=== PATIENT | female | born 1935 | race Caucasian/White ===

== ENCOUNTER → 2016-12-10 | Outpatient (CLI) | payer OTHER | LOC: CIMAGING 10:20 | PROVIDERS: ATTEND Internal Medicine | DX: N20.0 Calculus of kidney (principal) | CPT/HCPCS: 74176-PO ==

== ENCOUNTER → 2016-12-19 | Outpatient (CLI) | payer OTHER ==
[~2016-12-19] MED LIST: IOPAMIDOL (ISOVUE-300) 100 ML BTL IV ONE
[2016-12-19 09:04] LABS: CREATININE 0.9 mg/dL (0.6-1.0); GLOMERULAR FILTRATION RATE > 60
== END ==
LOC: FIMAGING 08:19
PROVIDERS: ATTEND Specialist
DX: N28.1 Cyst of kidney, acquired (principal); N20.0 Calculus of kidney
CPT/HCPCS: 74177; Q9967

== ENCOUNTER → 2017-01-08 | Outpatient (CLI) | payer OTHER | LOC: FIMAGING 08:47 | PROVIDERS: ATTEND Internal Medicine | DX: R92.8 Other abnormal and inconclusive findings on diagnostic imaging of breast (principal) ==

== ENCOUNTER 2017-01-23 09:40 | Day surgery (SDC) | payer OTHER ==
[2017-01-23] MEDS ORDERED: NS 1,000 ML IV SCH (10:00)
[2017-01-23] MEDS ORDERED: PROPOFOL/EMULSION 500 MG/50 ML BOTTLE IV ONE (11:46)
[2017-01-23] MEDS ORDERED: LIDOCAINE 2% 100 MG/5 ML SYR ONE (11:46)
[2017-01-23] MEDS ORDERED: fentaNYL 100 MCG/2 ML INJ ONE (11:46)
[2017-01-23] MEDS ORDERED: ONDANSETRON 4 MG/2 ML VIAL ONE (11:47)
[2017-01-23] MEDS ORDERED: DEXAMETHASONE 4 MG/ML VIAL ONE (11:47)
[2017-01-23] MEDS ORDERED: REMIFENTANIL HCL 1 MG VIAL ONE (11:48)
[2017-01-23] MEDS ORDERED: LIDOCAINE HCL 160 MG/4 ML LTA KIT TP ONE (11:51)
[2017-01-23] MEDS ORDERED: PHENYLEPHRINE HCL 100 MCG/ML SYR ONE (11:56)
[2017-01-23] MEDS ORDERED: epHEDrine SULFATE 10 MG/ML SYR ONE ×2 (11:57→12:31)
[2017-01-23] MEDS ORDERED: IOPAMIDOL (ISOVUE-300) 100 ML BTL IV ONE (12:43)
== END 2017-01-23 15:00 | disposition home or self-care (01) ==
LOC: FIMAGING 09:40
PROVIDERS: ATTEND Specialist
PROC: 0T9430Z Drainage of Left Kidney Pelvis with Drainage Device, Percutaneous Approach (ICD-10-PCS; principal; 2017-01-23 11:00)
DX: N20.0 Calculus of kidney (principal); N23 Unspecified renal colic; R82.99 Other abnormal findings in urine; R31.0 Gross hematuria; I10 Essential (primary) hypertension; E78.5 Hyperlipidemia, unspecified; E03.9 Hypothyroidism, unspecified; Z96.642 Presence of left artificial hip joint; Z79.01 Long term (current) use of anticoagulants
CPT/HCPCS: 50432; C1729; C1769; J0696; J1100; J1644; J2001; J2370; J2405; J2704; J3010; Q9967

== ENCOUNTER 2017-01-24 09:48 | Observation (INO) | payer OTHER ==
[~2017-01-24 09:48] MED LIST changes: -IOPAMIDOL (ISOVUE-300) 100 ML BTL IV ONE; +MIDAZOLAM 2 MG/2 ML VIAL ONE; +levOFLOXACIN 500 MG/DEXTROSE 100 ML IV ONE
[2017-01-24] MEDS ORDERED: MINERAL OIL 10 ML VIAL TP ONE (10:05)
[2017-01-24] MEDS ORDERED: levOFLOXACIN 500 MG/DEXTROSE/100 ML BAG IV ONE (10:15)
[2017-01-24] MEDS ORDERED: LIDOCAINE 1% 5 ML SDV ONE (10:16)
[2017-01-24] MEDS ORDERED: LIDOCAINE 2% 5 ML SDV ONE ×2 (10:16→10:55)
[2017-01-24] MEDS ORDERED: LR 1,000 ML IV ONE (10:39)
[2017-01-24] MEDS ORDERED: LIDOCAINE 1% 5 ML SDV ID PRN (10:39)
[2017-01-24] MEDS ORDERED: MIDAZOLAM 2 MG/2 ML VIAL ONE (10:49)
[2017-01-24] MEDS ORDERED: DEXAMETHASONE 4 MG/ML VIAL ONE (10:55)
[2017-01-24] MEDS ORDERED: PHENYLEPHRINE HCL 100 MCG/ML SYR ONE (10:55)
[2017-01-24] MEDS ORDERED: PROPOFOL 200 MG/20 ML VIAL ONE (10:55)
[2017-01-24] MEDS ORDERED: fentaNYL 100 MCG/2 ML INJ ONE (10:55)
[2017-01-24] MEDS ORDERED: morphINE *ANESTHESIA ONLY* 10 MG/ML VIAL ONE (11:10)
[2017-01-24] MEDS ORDERED: ONDANSETRON 4 MG/2 ML VIAL ONE ×2 (13:49)
[2017-01-24] MEDS ORDERED: IOPAMIDOL (ISOVUE-300) 100 ML BTL IV ONE (14:20)
--- NOTE | 2017-01-24 14:24 | POSTOPPROG ---
Post Op Note Date of Operation: 01/25/17 Surgeon: Charly Cota (# [id number]) Anesthesia: GET(General Endotracheal) Pre-op Diagnosis: Large left renal calculus (partial staghorn) Post-op Diagnosis: Large left renal calculus (partial staghorn) Procedure: Left PCN > 2 cm w/ fluoroscopic guidance Findings: See op note Inf/Abcess present in the surg proc area at time of surgery?: No EBL: 50-100 (75 cc) Complications: None Drains: Nephrostomy (14 Fr. left) Specimen(s): Left renal calculus fragments
[2017-01-24] MEDS ORDERED: ONDANSETRON 4 MG/2 ML VIAL IVP PRN (14:33)
[2017-01-24] MEDS ORDERED: HYDROmorphONE/DILAUDID 1 MG/ML SYR IVP PRN (14:34)
[2017-01-24] MEDS ORDERED: FLUTICASONE HFA 110 MCG MDI IH PRN (14:35)
[2017-01-24] MEDS ORDERED: SALMETEROL DISKUS MDI IH PRN (14:35)
[2017-01-24] MEDS ORDERED: D5W 1/2 NS 1,000 ML IV SCH (14:45)
[2017-01-24 14:58] LABS: HEMATOCRIT 36.5 % (38.0-47.0); HEMOGLOBIN 11.7 g/dL (12.6-16.3); MEAN CELL HEMOGLOBIN 30.2 pg (27.9-34.1); MEAN CELL HEMOGLOBIN CONCENTR. 32.1 g/dL (32.4-36.7); MEAN CELL VOLUME 94.3 fL (81.5-99.8); RED BLOOD CELL COUNT 3.87 10^6/uL (4.18-5.33); RED CELL DISTRIBUTION WIDTH 15.5 % (11.5-15.2)
[2017-01-24 15:19] LABS: ANION GAP 7 mEq/L (8-16); CALCIUM 8.6 mg/dL (8.5-10.4); CARBON DIOXIDE 24 mEq/l (22-31); CHLORIDE 107 mEq/L (97-110); CREATININE 0.7 mg/dL (0.6-1.0); GLOMERULAR FILTRATION RATE > 60; GLUCOSE 129 mg/dL (70-100); POTASSIUM 4.1 mEq/L (3.5-5.2); SODIUM 138 mEq/L (134-144)
[2017-01-24] MEDS ORDERED: PANTOPRAZOLE SODIUM 40 MG TAB PO PRN (15:26)
[2017-01-24] MEDS: HYDROCODONE/APAP 10/325 TAB PO PRN (20:32)
[2017-01-24] MEDS: diphenhydrAMINE 25 MG CAP PO PRN (21:04)
--- NOTE | 2017-01-24 21:16 | GOP ---
[f rep st] MTDD
[2017-01-25] MEDS: HYDROCODONE/APAP 10/325 TAB PO PRN ×5 (02:32→15:45)
[2017-01-25] MEDS: LEVOTHYROXINE 75 MCG TAB PO SCH (05:33)
[2017-01-25] MEDS: ROSUVASTATIN CALCIUM 10 MG TAB PO SCH (08:33)
[2017-01-25] MEDS: IRBESARTAN 150 MG TAB PO SCH (08:33)
[2017-01-25] MEDS ORDERED: LACTULOSE 20 GM/30 ML UDCUP PO PRN (14:10)
[2017-01-25] MEDS ORDERED: BISACODYL 10 MG SUPP PR PRN (14:10)
[2017-01-25] MEDS ORDERED: POLYETHYLENE GLYCOL 3350 17 GM PKT PO PRN (14:10)
[2017-01-25] MEDS ORDERED: MAGNESIUM HYDROXIDE 30 ML UDCUP PO PRN (14:10)
[2017-01-25] MEDS: PSYLLIUM METAMUCIL 1 PKT PO SCH (14:25)
--- NOTE | 2017-01-25 16:45 | SOAPPROG ---
SOAP Progress Note Assessment/Plan: Assessment: POD 1 s/p left PCNL - stable. Plan: 1. Pt. does not want to be discharged home today. 2. D/C Bundy, continue ambulation. 3. D/C home w/ neph. tube tomorrow; arrangements being made for nephrostogram and tube removal in IR for Sat. next week (they are unable to get it on their schedule for next Saturday). Subjective: C/o left-sided abdominal pain which is controlled with current regimen. No other complaints. Objective: Vital Signs Temp Pulse Resp BP Pulse Ox 36.7 C 69 18 148/75 H 86 L 01/25/17 12:30 01/25/17 12:30 01/25/17 12:41 01/25/17 12:30 01/25/17 12:41 Laboratory Results 01/24/17 14:45 01/24/17 14:45 01/24/17 01/25/17 01/26/17 05:59 05:59 05:59 Intake Total 2580 Output Total 1625 945 Balance 955 -945 Physical Exam - Physical Exam General Appearance: WD/WN, alert, no apparent distress Abdomen: non-tender, soft Pelvic Exam: other (Bundy drainage clear) Back: Other (neph. tube draining slightly pink-tinged urine) Skin: normal color, warm/dry Extremities: non-tender, normal inspection Neuro/Psych: alert, normal mood/affect, oriented x 3 ICD10 Worksheet Patient Problems: Problems Problem Status Onset Kidney stones Acute - ICD10 Problem Qualifiers (1) Kidney stones
[2017-01-25 19:01] LABS: HEMATOCRIT 38.8 % (38.0-47.0); HEMOGLOBIN 11.9 g/dL (12.6-16.3); MEAN CELL HEMOGLOBIN 29.7 pg (27.9-34.1); MEAN CELL HEMOGLOBIN CONCENTR. 30.7 g/dL (32.4-36.7); MEAN CELL VOLUME 96.8 fL (81.5-99.8); RED BLOOD CELL COUNT 4.01 10^6/uL (4.18-5.33); RED CELL DISTRIBUTION WIDTH 15.8 % (11.5-15.2)
[2017-01-25 19:26] LABS: ANION GAP 7 mEq/L (8-16); CALCIUM 9.5 mg/dL (8.5-10.4); CARBON DIOXIDE 28 mEq/l (22-31); CHLORIDE 105 mEq/L (97-110); CREATININE 0.9 mg/dL (0.6-1.0); GLOMERULAR FILTRATION RATE > 60; GLUCOSE 99 mg/dL (70-100); POTASSIUM 4.6 mEq/L (3.5-5.2); SODIUM 140 mEq/L (134-144)
[2017-01-25] MEDS: diphenhydrAMINE 25 MG CAP PO PRN (19:39)
[2017-01-25] MEDS: SENNOSIDES/DOCUSATE SODIUM TAB PO SCH (19:40)
--- NOTE | 2017-01-25 20:49 | GOP ---
[f rep st] OPERATIVE REPORT DATE OF OPERATION: 01/25/2017 SURGEON: Charly Cota MD ANESTHESIA: General endotracheal. PREOPERATIVE DIAGNOSIS: Large left partial staghorn renal calculus. POSTOPERATIVE DIAGNOSIS: Large left partial staghorn renal calculus. PROCEDURE PERFORMED: Left-sided percutaneous nephrostolithotomy (greater than 2 cm), ultrasonic and holmium laser lithotripsy, fluoroscopic guidance greater than 1 hour. FINDINGS: Large (greater than 2 cm) left partial staghorn renal calculus, addressed surgically as noted in the description of the procedure. SPECIMENS: Calculus fragments. ESTIMATED BLOOD LOSS: Approximately 75 cc. INDICATIONS: This woman has been having symptoms presumably related to a longstanding left partial staghorn calculus. She has decided to undergo operative management. The indications for the procedures, as well as potential risks and complications, were discussed with the patient preoperatively. She appeared to understand, her questions were answered, and she wished to proceed. Written informed surgical consent was thereafter obtained. The patient had presented to Interventional Radiology the day before surgery to have her nephrostomy tube placed. DESCRIPTION OF PROCEDURE: The patient was brought to the operating room and administered general endotracheal anesthesia. A Bundy catheter was placed to gravity drainage. The patient was turned over carefully into the prone position with all appropriate pressure points padded. The patient's back and her existing nephrostomy tube were prepped and draped in standard fashion. I had reviewed the case with Dr. Walker from Interventional Radiology prior to surgery. We had mutually decided that there was concern I might not be able to access all of the calculus material through the existing indwelling nephrostomy tube access point. Therefore, we decided he would place another access point in a posterior upper pole calyx. Dr. Walker then proceeded to do this along with placing a working a nephroscopic sheath through the lower pole access. I then used the rigid nephroscope, along with intermittent fluoroscopic guidance, to identify the majority of the stone. The ultrasonic Lithotripter was used to fragment the calculus and remove fragments at same time. I also used rigid grasping forceps to remove larger chunks of the stone. It should also be mentioned that Dr. Walker did place a ureteral balloon occlusion catheter through the lower pole access and situated the balloon in the proximal ureter. I removed all visualized stone from the lower pole access that was possible. I also used flexible nephroscopy to accomplish this. It should be also noted that none of her calculus was visible to any significant extent on fluoroscopy. We then decided to proceed with exploration through the upper pole access. Dr. Walker then dilated this tract and placed a working nephroscopic sheath. The flexible nephroscope was used to evaluate the [id number] calyces, particularly in the lower pole. One small calyx was noted to be full of stones and a 365 micron holmium laser fiber was used to fragment the calculi in this calyx. The calculi in this calyx were adherent to the urothelium and were carefully teased off using the using the holmium laser. I then irrigated the calyx in order to flush out all of the stone fragments. Once this was completed , no other significant stone material was noted within the collecting system. The nephrostolithotomy portion the procedure was terminated at this time. We then removed the upper pole access completely and the skin at this location was reapproximated with a running silk suture. A 14-[place] nephrostomy tube was placed through the lower pole access by Dr. Walker and secured in place in standard fashion, then connected to bag drainage. The patient was turned back over into the supine position. She was awakened, extubated, transferred to her bed, then taken to the recovery room. She tolerated the procedure well overall. COMPLICATIONS: None. DISPOSITION: She was transferred to the recovery in stable condition. She will be admitted for postoperative care. /[id number]/MODL MTDD
[2017-01-26 04:08] VITALS: RESP 16
[2017-01-26] MEDS: LEVOTHYROXINE 75 MCG TAB PO SCH (05:55)
[2017-01-26 07:42] VITALS: BP 148/78; PULSE 74; TEMP 99.2
[2017-01-26 07:45] VITALS: O2SAT 95
[2017-01-26] MEDS: IRBESARTAN 150 MG TAB PO SCH (08:49)
[2017-01-26] MEDS: SENNOSIDES/DOCUSATE SODIUM TAB PO SCH (08:50)
[2017-01-26] MEDS: ROSUVASTATIN CALCIUM 10 MG TAB PO SCH (08:50)
[2017-01-26] MEDS: PSYLLIUM METAMUCIL 1 PKT PO SCH (08:51)
--- NOTE | 2017-01-26 10:37 | PDDCSUM ---
Discharge Summary Discharge Summary: Dict. # [id number]
--- NOTE | 2017-01-26 11:06 | GDS ---
[f rep st] DISCHARGE SUMMARY ADMISSION DIAGNOSIS: Large partial staghorn left renal calculus. DISCHARGE DIAGNOSIS: Large partial staghorn left renal calculus. PROCEDURE: Left-sided percutaneous nephrostolithotomy on 01/24/2017. HOSPITAL COURSE: Refer to the Operative Report for details regarding the procedure. Postoperativel y, the patient did well. Her nephrostomy tube was relatively clear on postoperative day 1 and she w as voiding by this time as well. Postoperative vital signs were stable and she was afebrile. She c omplained of some abdominal pain which was relieved with postoperative analgesics. Remainder of her physical exam was unremarkable. The patient was ready for discharge on postoperative day 1 from a clinical standpoint, but she did not feel ready to go home based on concerns that her would not be able to help care for her; therefore, she was not discharged until postoperative day 2. She is being discharged on her regular medications, as well as [place] 10 mg p.r.n. pain. She is to jamaal nue a regular diet and maintain activity restrictions and instructions as discussed. She will maint ain her nephrostomy tube as instructed on discharge instructions. [facility] a [facility]ogram and probable nephrostomy tube removal at that time then follow up in my office in approximately 1 month with a noncontrast CT scan to reassess for alicia ining nephrolithiasis. /[id number]/MODL
[2017-01-26] MEDS: HYDROCODONE/APAP 10/325 TAB PO PRN ×2 (11:53→17:39)
[2017-01-30 18:04] LABS: SOURCE OF STONE KIDNEY
[2017-01-30 18:06] LABS: NIDUS NOT OBSERVED
== END 2017-01-26 17:52 | disposition home health service (06) ==
LOC: INTOOBSV 09:48 → F3N 09:48 → F1N 10:15
PROVIDERS: ADMIT Specialist; ATTEND Specialist
PROC: 0T9430Z Drainage of Left Kidney Pelvis with Drainage Device, Percutaneous Approach (ICD-10-PCS; principal; 2017-01-25)
PROC: 0TC44ZZ Extirpation of Matter from Left Kidney Pelvis, Percutaneous Endoscopic Approach (ICD-10-PCS; principal; 2017-01-25)
DX: N20.0 Calculus of kidney (principal); I10 Essential (primary) hypertension
CPT/HCPCS: 50081; 50432; 74485; 75984; C1725; C1729; C1769; J1100; J1170; J1644; J1956; J2250; J2370; J2405; J2704; J3010; Q9967; 82365-90

== ENCOUNTER 2017-01-27 10:49 | Inpatient (IN) | payer OTHER ==
--- NOTE | 2017-01-27 11:12 | EDPHY ---
H & P Stated Complaint: problems with nephrostomy tube - Personal History Current Tetanus/Diphtheria Vaccine: Yes Tetanus Vaccine Date: <10 YRS - Medical/Surgical History Hx Asthma: Yes Hx Chronic Respiratory Disease: Yes Hx Diabetes: No Hx Cardiac Disease: No Hx Renal Disease: Yes Hx Cirrhosis: No Hx Alcoholism: No Hx HIV/AIDS: No Hx Splenectomy or Spleen Trauma: No Other PMH: pmh- asthma, copd, htn, kidney stones, hypothyroid, esophageal spasms. psh- appy, hysterectomy, R knee replaced - Social History Smoking Status: Never smoked Time Seen by Provider: 01/27/17 11:02 HPI/ROS: CHIEF COMPLAINT: Concerns over nephrostomy tube HISTORY OF PRESENT ILLNESS: 81-year-old female postop day for post percutaneous nephrostolithotomy secondary to a large partial staghorn left renal calculus, arrives with family members for evaluation and concerns over her nephrostomy lithotomy tube, noting that she has urinary leakage around the tube site, started to have skin breakdown, the family is unable to care for her at this time they have limited in-home nursing and they are requesting readmission to the hospital. The family has expressed their displeasure to me about the care they received while she was in the hospital. Denies: Fever, chills, nausea, vomiting, chest pain, back pain, abdominal pain , flu-like symptoms PRIMARY CARE PROVIDER:Dr. aRza hSore REVIEW OF SYSTEMS: A ten point review of systems was performed and is negative with the exception of the items mentioned in the HPI PAST MEDICAL & SURGICAL HISTORY: Postop day 4 post placement of left percutaneous nephrostomy secondary to staghorn calculus SOCIAL HISTORY:nonsmoker PHYSICAL EXAM (Prior to examination, patient consented to physical exam, hands were washed and my usual and customary physical exam procedures followed) 1) GENERAL: Well-developed, well-nourished, alert and oriented. Appears to be in no acute distress. 2) HEAD: Normocephalic, atraumatic 3) HEENT: Pupils equal, round, reactive to light bilaterally. Sclera anicteric. 4) NECK: Full range of motion, no meningeal signs. 5) LUNGS: Clear auscultation bilaterally, no wheezes, no rhonchi, no retractions. 6) HEART: Regular rate and rhythm, no murmur, no heave, no gallop. 7) ABDOMEN: No guarding, no rebound, no focal tenderness,, 8) MUSCULOSKELETAL: Moving all extremities, no focal areas of tenderness, no obvious trauma. No peripheral edema or discoloration. 9) BACK: Patient's left flank the wound site appears intact with no signs of infection. There is a clear fluid, likely urine which is saturating the dressing. There is surrounding skin breakdown and irritation. 10) SKIN: No rash, no petechiae. 11) Psychiatric: Patient is oriented X 3, there is no agitation. DIFFERENTIAL DIAGNOSIS: in no particular order including but not limited to wound infection, nephrostomy dysfunction, UTI (Radha Smith) Constitutional: Initial Vital Signs Temperature (C) 37 C 01/27/17 10:53 Heart Rate 83 01/27/17 10:53 Respiratory Rate 20 01/27/17 10:53 Blood Pressure 164/69 H 01/27/17 10:53 O2 Sat (%) 91 L 01/27/17 10:53 O2 Delivery Mode Room Air Allergies/Adverse Reactions: No Known Allergies Allergy (Verified 01/27/17 10:51) Home Medications: Medication Instructions Recorded Aspirin [Aspirin 81mg (*)] 81 mg PO DAILY 05/16/14 Cholecalciferol Vit D3 [Vitamin D3 1,000 units PO DAILY 05/16/14 (*)] Fluticasone Hfa 110 Mcg [Flovent 1 puffs IH DAILY PRN 05/16/14 110 MCG Hfa MDI (*)] Irbesartan [Avapro 150 mg (*)] 150 mg PO DAILY 05/16/14 Levothyroxine [Synthroid 75 mcg 75 mcg PO DAILY06 05/16/14 (*)] Omeprazole [Prilosec 20 mg] 40 mg PO DAILY PRN 05/16/14 Rosuvastatin Calcium [Crestor 5mg] 5 mg PO DAILY 05/16/14 Salmeterol Diskus [Serevent Diskus 1 puffs IH DAILY PRN 05/16/14 (*)] Estropipate 0.625mg 0.625 mg PO DAILY 12/27/16 HYDROcodone/APAP 10/325 [[place] 1 - 2 tab PO Q6 PRN #25 tab 01/25/17 10/325 (*)] Psyllium Husk (with Sugar) 1 each PO DAILY 01/27/17 [Metamucil Packet] Medical Decision Making ED Course/Re-evaluation: 11:15 a.m.: Old medical records reviewed. Discussed case with Dr. Vic Arita. Dr. Cota has been paged. Patient also requests that I communicate with her primary care provider Dr. Raza Shore 11:28 a.m.: Phone consultation with Dr. Cota. I explained the clinical findings and the family's concerns including, but not limited to, their ability to perform regular dressing changes, the amount of leakage around the nephrostomy tube, and the family's request that she be readmitted to the hospital. Dr Cota did not think there are was indication for readmission and recommended discharge and home health. 11:35 a.m.: I discussed with the family my conversation with Dr. Cota. The ER patient case manager has also spoken with the family at this time. I discussed options including getting more home health to come out to the house. The family is adamant that this would not be an acceptable option noting the 82-year-old is unable provide sufficient care and with the patient necessitating q2 hour wound dressing changes, their concerns about skin breakdown and amount of leaking urine.. Will discuss admission with the hospitalist 11:50 a.m.: Phone consultation with hospitalist, Constanza, admit to Dr. Raya. 12:48 p.m.: Phone consultation with Dr. Cortes, sonography technician for Dr Shore, to alert her to the patient's admission status. (Radha Smith) I did not see the patient while she was in the emergency department. However her care was discussed with the PA while the patient was in the department. I agree with treatment plan and management (Vic Arita) - Data Points Laboratory Results: Laboratory Results 01/27/17 11:21 01/27/17 11:21 01/27/17 01/27/17 01/27/17 11:25 11:21 11:21 WBC 8.17 10^3/uL 10^3/uL (3.80-9.50) RBC 3.90 10^6/uL L 10^6/uL (4.18-5.33) Hgb 11.8 g/dL L g/dL (12.6-16.3) Hct 36.9 % L % (38.0-47.0) MCV 94.6 fL fL (81.5-99.8) MCH 30.3 pg pg (27.9-34.1) MCHC 32.0 g/dL L g/dL (32.4-36.7) RDW 15.2 % % (11.5-15.2) Plt Count 143 10^3/uL L 10^3/uL (150-400) MPV 11.5 fL fL (8.7-11.7) Neut % (Auto) 79.2 % H % (39.3-74.2) Lymph % (Auto) 11.0 % L % (15.0-45.0) [place] % (Auto) 7.2 % % (4.5-13.0) Eos % (Auto) 1.8 % % (0.6-7.6) Baso % (Auto) 0.2 % L % (0.3-1.7) Nucleat RBC Rel Count 0.0 % % (0.0-0.2) Absolute Neuts (auto) 6.46 10^3/uL 10^3/uL (1.70-6.50) Absolute Lymphs (auto) 0.90 10^3/uL L 10^3/uL (1.00-3.00) Absolute Monos (auto) 0.59 10^3/uL 10^3/uL (0.30-0.80) Absolute Eos (auto) 0.15 10^3/uL 10^3/uL (0.03-0.40) Absolute Basos (auto) 0.02 10^3/uL 10^3/uL (0.02-0.10) Absolute Nucleated RBC 0.00 10^3/uL 10^3/uL (0-0.01) Immature Gran % 0.6 % % (0.0-1.1) Immature Gran # 0.05 10^3/uL 10^3/uL (0.00-0.10) Sodium 138 mEq/L mEq/L (134-144) Potassium 4.3 mEq/L mEq/L (3.5-5.2) Chloride 101 mEq/L mEq/L (97-110) Carbon Dioxide 28 mEq/l mEq/l (22-31) Anion Gap 9 mEq/L mEq/L (8-16) BUN 11 mg/dL mg/dL (7-23) Creatinine 0.7 mg/dL mg/dL (0.6-1.0) Estimated GFR > 60 Glucose 104 mg/dL H mg/dL (70-100) Calcium 9.6 mg/dL mg/dL (8.5-10.4) Urine Color RED Urine Appearance HAZY Urine pH 6.0 (5.0-7.5) Ur Specific [place] 1.015 (1.002-1.030) Urine Protein 2+ H (NEGATIVE) Urine Ketones 1+ H (NEGATIVE) Urine Blood 3+ H (NEGATIVE) Urine Nitrate NEGATIVE (NEGATIVE) Urine Bilirubin NEGATIVE (NEGATIVE) Urine Urobilinogen NEGATIVE EU EU (0.2-1.0) Ur Leukocyte Esterase 1+ H (NEGATIVE) Urine RBC 50-182 /hpf H /hpf (0-3) Urine WBC 50-182 /hpf H /hpf (0-3) Ur Epithelial Cells NONE SEEN /lpf /lpf (NONE-1+) Urine Mucus TRACE /lpf /lpf (NONE-1+) Urine Yeast PRESENT /hpf /hpf (NONE SEEN) Urine Glucose NEGATIVE (NEGATIVE) Medications Given: Discontinued Medications Oxycodone/Acetaminophen (Percocet 5/325) 1 tab PO EDNOW ONE Stop: 01/27/17 11:43 Last Admin: 01/27/17 11:52 Dose: 1 tab Departure - Departure Disposition: [facility] Acute Clinical Impression: Nephrostomy complication Condition: Fair
[2017-01-27 11:33] LABS: % IMMATURE GRANULYOCYTES 0.6 % (0.0-1.1); ABSOLUTE IMMATURE GRANULOCYTES 0.05 10^3/uL (0.00-0.10); ADD DIFF? NO; ADD MORPH? NO; ADD SCAN? NO; ATYPICAL LYMPHOCYTE FLAG 0 (0-99); FRAGMENT RBC FLAG 0 (0-99); HEMATOCRIT 36.9 % (38.0-47.0); HEMOGLOBIN 11.8 g/dL (12.6-16.3); LEFT SHIFT FLG 0 (0-99); LIPEMIA HEMOLYSIS FLAG 80 (0-99); MEAN CELL HEMOGLOBIN 30.3 pg (27.9-34.1); MEAN CELL VOLUME 94.6 fL (81.5-99.8); MEAN PLATELET VOLUME 11.5 fL (8.7-11.7); PLATELET CLUMPS FLAG 20 (0-99); PLATELET COUNT 143 10^3/uL (150-400); RED CELL DISTRIBUTION WIDTH 15.2 % (11.5-15.2)
[2017-01-27] MEDS ORDERED: OXYCODONE/APAP 5/325 TAB PO ONE (11:42)
[2017-01-27] MEDS ORDERED: OXYCODONE/APAP 5/325 TAB ONE (11:43)
[2017-01-27 11:46] LABS: COLOR RED; NITRITE,URINE NEGATIVE (NEGATIVE)
[2017-01-27 12:05] LABS: MUCUS TRACE /lpf (NONE-1+); RBC,URINE 50-182 /hpf (0-3); WBC,URINE 50-182 /hpf (0-3); YEAST PRESENT /hpf (NONE SEEN)
[2017-01-27 12:06] LABS: LEUKOCYTE ESTERASE,URINE 1+ (NEGATIVE)
[2017-01-27 12:06] LABS: ANION GAP 9 mEq/L (8-16); CALCIUM 9.6 mg/dL (8.5-10.4); CARBON DIOXIDE 28 mEq/l (22-31); CHLORIDE 101 mEq/L (97-110); CREATININE 0.7 mg/dL (0.6-1.0); GLOMERULAR FILTRATION RATE > 60; GLUCOSE 104 mg/dL (70-100); POTASSIUM 4.3 mEq/L (3.5-5.2); SODIUM 138 mEq/L (134-144)
[2017-01-27] MEDS ORDERED: ZOLPIDEM TARTRATE 5 MG TAB PO PRN (13:08)
[2017-01-27] MEDS ORDERED: LORazepam 0.5 MG TAB PO PRN (13:08)
[2017-01-27] MEDS ORDERED: LORazepam 2 MG/ML INJ IVP PRN (13:08)
[2017-01-27] MEDS ORDERED: ONDANSETRON DISINTEGRATING 4 MG TAB PO PRN (13:08)
[2017-01-27] MEDS ORDERED: ACETAMINOPHEN 325 MG TAB PO PRN (13:08)
[2017-01-27] MEDS ORDERED: ONDANSETRON 4 MG/2 ML VIAL IVP PRN (13:08)
[2017-01-27] MEDS ORDERED: NON-FORMULARY NEW DRUG (Omeprazole [Prilosec 20 Mg] 40 MG) PO PRN (13:13)
[2017-01-27] MEDS ORDERED: SALMETEROL DISKUS MDI IH PRN (13:13)
[2017-01-27] MEDS ORDERED: FLUTICASONE HFA 110 MCG MDI IH PRN (13:13)
[2017-01-27] MEDS ORDERED: NS W/ 20 KCl/L 1,000 ML IV SCH (13:15)
[2017-01-27] MEDS ORDERED: PANTOPRAZOLE SODIUM 40 MG TAB PO PRN ×2 (13:41→13:42)
--- NOTE | 2017-01-27 13:54 | GHP ---
[f rep st] HISTORY AND PHYSICAL DATE OF ADMISSION: 01/27/2017 CHIEF COMPLAINT: Leaking left nephrostomy tube. HISTORY OF PRESENT ILLNESS: This is a 81-year-old female who, from 01/23 to was treated in this facility for a staghorn kidney stone in the left renal pelvis. She underwent a nephrostomy tube and then a nephrostomy dilation, ultimately lithotripsy, and was discharged on 01/27 with a nephrostomy tube in place. There was some leaking about the nephrostomy tube at the time of discharge, but it has persistently leaked and soaked all absorbing pads since that time. In the last several hours, she has had very minimal output into the nephrostomy bag, as apparently most of the urine is leaking around the tube. There is pain in the local area and pain in the left side of her abdomen. She is moving gas below, has a loss of appetite but no nausea, vomiting, and denies having fever, chills, or sweats. She also denies having any chest pain or shortness of breath. Historically, she had a problem with a kidney stone in the left kidney in 2009 and had done well until the onset of this problem, with an admission on 01/23/2017. She has no known history of recurrent kidney infection, bladder infections, disorders of calcium, parathyroid, or thyroid disorder other than the fact that her thyroid has been low and is under treatment. PAST MEDICAL HISTORY: History of asthma, which has been mild and intermittently treated. Hypertension, which is currently under treatment. Hypothyroidism is also treated. PAST SURGICAL HISTORY: A left knee arthroplasty in 2011. ALLERGIES: No known allergies. FAMILY HISTORY: Positive for cancer and diabetes mellitus. SOCIAL HISTORY: She is , lives with her here in [place], and is accompanied today by her daughter. She never smoked cigarettes, rarely uses alcohol, and does not use any drugs of abuse. REVIEW OF SYSTEMS: A 10-point review of systems is entirely negative except as noted above in the HPI. In addition, she denies a history of a DVT, pulmonary embolus. She has no chronic joint disorder, disorders of calcium, gout, and no chronic bowel disorder. She usually moves her bowels normally but has not moved her bowels well since the onset of this acute illness. Her last real bowel movement was on 01/23. PHYSICAL EXAMINATION: GENERAL: Pleasant, alert female who appears slightly uncomfortable but in no distress. VITAL SIGNS: Her blood pressure shows systolic elevation at 164/69. She has adequate room air saturation, is afebrile. Heart rate is 80 and regular. HEENT: WNL. Tongue and buccal mucosa are normal without lesions. CHEST WALL: Nontender to palpation. Normal inspiratory excursion. LUNGS: Clear to P and A. HEART: Singular S1 and S2. Soft systolic ejection murmur, grade 1/6 to 2/6, along the LSB without a gallop rhythm heard. JVP cannot be well assessed. ABDOMEN: Some distention. There is tenderness on the left side of the abdomen and some edema and tenderness with slight erythema along the left side and ranging around toward the left nephrostomy tube, which is located low on the costophrenic region. That area is, in particular, tender, and the nephrostomy tube is, in fact, leaking urine significantly. The urostomy bag shows that there is a scant amount of urine, which is bloody in nature without clots. The left lower quadrant of the abdomen is nontender. There is no rebound. SKIN: Overall, warm, pale with good capillary refill. EXTREMITIES: Negative Homans sign. No palpable cords. NEUROLOGIC: Symmetric and normal. LABORATORY: WBC is normal at 8000 with anemia with a hemoglobin of 11.8. Chemistry panel is normal entirely with a normal calcium at 9.6. Urine shows red cells and white cells. Review of past records shows that earlier in January, her hemoglobin was 14.2 but has now fallen to 11.8. Renal function has remained normal throughout this episode, and there is no microbiology and no cultures to review. ASSESSMENT: 1. Acute leakage of a left urostomy tube. Patient status post lithotripsy with placement of the nephrostomy tube on 01/23 by IR. There had been some leakage of this tube prior to admission of a slight degree, but it is now copious, and it is possible the tube has become dislodged. I am going to obtain an ultrasound of the region for further clarification and consult with IR and Urology. 2. Asthma by history. Currently under good control. 3. Hypertension. She is mildly hypertensive. At this point, we will reinstitute her home antihypertensive regime, and if she needs to be n.p.o. for a procedure, we will cover her for systolic blood pressure greater than 160. 4. Chronic medical problems of hypothyroidism and possible hyperlipidemia. These will be treated in the usual fashion. 5. Code status is full. 6. Deep venous thrombosis prophylaxis will be with early ambulation and with Lovenox. Billing: Admit to observation /[id number]/MODL MTDD
[2017-01-27] MEDS: IPRATROPIUM/ALBUTEROL 3 ML DEYVIAL IH SCH ×2 (15:05→20:46)
[2017-01-27] MEDS ORDERED: IOPAMIDOL (ISOVUE-300) 100 ML BTL IV ONE (15:16)
[2017-01-27] MEDS: HYDROCODONE/APAP 10/325 TAB PO PRN (16:48)
[2017-01-28] MEDS: IPRATROPIUM/ALBUTEROL 3 ML DEYVIAL IH SCH ×2 (04:50→08:34)
[2017-01-28 05:12] LABS: % IMMATURE GRANULYOCYTES 0.5 % (0.0-1.1); ABSOLUTE IMMATURE GRANULOCYTES 0.03 10^3/uL (0.00-0.10); ADD DIFF? NO; ADD MORPH? NO; ADD SCAN? NO; ATYPICAL LYMPHOCYTE FLAG 0 (0-99); FRAGMENT RBC FLAG 10 (0-99); HEMATOCRIT 32.7 % (38.0-47.0); HEMOGLOBIN 10.5 g/dL (12.6-16.3); LEFT SHIFT FLG 0 (0-99); LIPEMIA HEMOLYSIS FLAG 80 (0-99); MEAN CELL HEMOGLOBIN 30.5 pg (27.9-34.1); MEAN CELL HEMOGLOBIN CONCENTR. 32.1 g/dL (32.4-36.7); MEAN CELL VOLUME 95.1 fL (81.5-99.8); PLATELET CLUMPS FLAG 10 (0-99); PLATELET COUNT 160 10^3/uL (150-400); RED BLOOD CELL COUNT 3.44 10^6/uL (4.18-5.33)
[2017-01-28 05:39] LABS: ANION GAP 6 mEq/L (8-16); CALCIUM 9.1 mg/dL (8.5-10.4); CARBON DIOXIDE 27 mEq/l (22-31); CHLORIDE 103 mEq/L (97-110); CREATININE 0.7 mg/dL (0.6-1.0); GLOMERULAR FILTRATION RATE > 60; GLUCOSE 82 mg/dL (70-100); POTASSIUM 4.4 mEq/L (3.5-5.2); SODIUM 136 mEq/L (134-144)
[2017-01-28] MEDS ORDERED: LEVOTHYROXINE 75 MCG TAB PO SCH (06:00)
[2017-01-28 08:13] VITALS: BP 164/86; TEMP 98
[2017-01-28 08:41] VITALS: PULSE 74; RESP 16; O2SAT 93
[2017-01-28] MEDS ORDERED: CHOLECALCIFEROL VIT D3 1,000 UNITS TAB PO SCH (09:00)
[2017-01-28] MEDS ORDERED: PSYLLIUM METAMUCIL 1 PKT PO SCH (09:00)
[2017-01-28] MEDS ORDERED: ENOXAPARIN 40 MG/0.4 ML SYR SC SCH (09:00)
[2017-01-28] MEDS ORDERED: NON-FORMULARY NEW DRUG (Rosuvastatin Calcium [Crestor 5mg] 5 MG) PO SCH (09:00)
[2017-01-28] MEDS ORDERED: IRBESARTAN 150 MG TAB PO SCH (09:00)
[2017-01-28] MEDS ORDERED: ROSUVASTATIN CALCIUM 10 MG TAB PO SCH (09:00)
[2017-01-28] MEDS ORDERED: MULTIVITAMINS 1 EACH TAB PO SCH (09:00)
[2017-01-28] MEDS: HYDROCODONE/APAP 10/325 TAB PO PRN (10:11)
--- NOTE | 2017-01-28 11:21 | GDS ---
[f rep st] DISCHARGE SUMMARY ACUTE DIAGNOSES: 1. Acute leaking nephrostomy site, now status post removal of nephrostomy tube and placement of isaac nt. Leaking is now resolved. 2. Status post nephrostomy and stent placement for left renal calculus and status post lithotripsy on a previous admission. 3. Constipation. CONSULTATION: Interventional Radiology. PROCEDURE: Removal of the left nephrostomy tube and placement of a stent with verification of flow distally down the ureter to the bladder. HOSPITAL COURSE: A 81-year-old female who, on a prior hospitalization, had a left nephrostomy tube placed for a staghorn kidney stone in the left kidney. The stone underwent lithotripsy and ultimate removal. The nephrostomy tube was left in place. She returned as it was leaking significantly. I R confirmed that the tube was in place and confirmed good distal flow down the ureter to the bladder . The nephrostomy tube was removed, and a stent was placed. In the a.m. of discharge, there was no further leakage. Wound care was applied. There are [address] which will need to be removed. DISCHARGE MEDICATIONS: Noted in the EMR. In addition to her usual medications, I have added MiraLA X 17 g p.o. daily, #4; [place] 5/325 mg tablets, #14; and Senokot S. PLAN: The patient will be discharged in the accompaniment of her daughter and her . All mat ters have been explained to her. There was no leaking from the wound care site. I have recommended a followup with Dr. Cota in approximately [address] Shore to remove the sutures. They [facility] in the [facility], and I recommended they at least call Dr. Cota and inform him how they are doing. TIME: This discharge required 40 minutes. Greater than 50% to psychosocial rehabilitation counselor, coordinate care, and explai n matters to the daughter and the as to how to care for, what to expect, and how to follow u p. /[id number]/MODL
--- NOTE | 2017-01-28 12:03 | WOCRNPDOC ---
CONSUELO Advanced Assessment Note - Skin Integrity Problem, Advanced Assess Left Flank Nephrostomy Site Dressing Type: Gauze Dressing Description: Intact, Shadowed Exudate Amount: Minimal Exudate Color: Yellow Exudate Characteristic(s): Dried Integumentary Issue Intervention: Dressing Applied (Allevyn: med and small ), Dressing Initialed & Dated, Hydrogel Applied (silvasorb) Kristi Wound Tissue: Erythema, Intact Kristi Wound Swelling: None Wound Bed Color: [place] Wound Bed Constitution: Smooth Tissue, De-roofed Serous Blister (associated with nephrostomy leakage) Wound Edges: Epithelizing, Well Defined Site Odor: None Site Measurement - Head-to-Toe Length X Width X Depth (cm): 2.5 x 2 x 0.05 Skin Integrity Problem Comment: Sutures intact at sites of nephrostomy removal; Surrounding skin is pink with appearance of resolving irritation. Patient and daughter verbalized concerns and questions about care at home: In response, provided dressing placement accompanied by demo and verbal instructions for care. Pt c/o tenderness at site during adhesive removal: Used adhesive remover; cleaned site w/sterile NS and gauze; applied silvasorb gel to deroofed blister site; covered w/Allevyn dressing, medium; and applied Allevyn, small, to distal drain site to protect in the event of further leakage. Dr. Raya in to [place] patient home.
== END 2017-01-28 11:56 | disposition home health service (06) | DRG 700 ==
LOC: F1N 13:18
PROVIDERS: ADMIT Internal Medicine Pulmonary Disease; ATTEND Internal Medicine Pulmonary Disease
PROC: 0TP5X0Z Removal of Drainage Device from Kidney, External Approach (ICD-10-PCS; principal; 2017-01-27)
DX: N99.522 Malfunction of incontinent external stoma of urinary tract (principal); K59.00 Constipation, unspecified; J45.909 Unspecified asthma, uncomplicated; I10 Essential (primary) hypertension; E03.9 Hypothyroidism, unspecified; E78.5 Hyperlipidemia, unspecified
CPT/HCPCS: 82365-90; C1725; C1729; C1769; J1100; J1170; J1644; J1650; J1956; J2250; J2370; J2405; J2704; J3010; Q9967

== ENCOUNTER → 2017-02-22 | Outpatient (CLI) | payer OTHER | LOC: FIMAGING 11:41 | PROVIDERS: ATTEND Specialist | DX: N20.0 Calculus of kidney (principal); I70.0 Atherosclerosis of aorta; K57.30 Diverticulosis of large intestine without perforation or abscess without bleeding ==

== ENCOUNTER → 2017-06-05 | Outpatient (CLI) | payer OTHER, MEDICARE | LOC: FIMAGING 09:27 | PROVIDERS: ATTEND Internal Medicine | DX: Z12.31 Encounter for screening mammogram for malignant neoplasm of breast (principal) | CPT/HCPCS: G0202 ==

== ENCOUNTER → 2018-06-17 | Outpatient (CLI) | payer OTHER, MEDICARE | LOC: FIMAGING 10:02 | PROVIDERS: ATTEND Internal Medicine | DX: Z12.31 Encounter for screening mammogram for malignant neoplasm of breast (principal) ==

== ENCOUNTER → 2019-01-16 | Outpatient (CLI) | payer OTHER, MEDICARE | LOC: FIMAGING 13:01 | PROVIDERS: ATTEND Internal Medicine | DX: M25.551 Pain in right hip (principal); R10.2 Pelvic and perineal pain ==